=== PATIENT | female | born 1955 | race African-American/Black ===

== ENCOUNTER 2016-08-18 00:07 | Inpatient (IN) ==
[2016-08-18] MEDS ORDERED: TORADOL IV ONE (00:33)
[2016-08-18] MEDS ORDERED: ZOFRAN IV ONE (00:34)
[2016-08-18] MEDS ORDERED: DILAUDID IV ONE ×2 (00:34→01:28)
[2016-08-18] MEDS ORDERED: NS 1,000 ML IV ONE ×2 (01:27→02:26)
[2016-08-18 01:31] LABS: MANUAL DIFF NEEDED? NO
[2016-08-18 01:54] LABS: AGAP 12; ALBUMIN 4.1 g/dL (3.5-5.0); ALKALINE PHOSPHATASE 61 U/L (32-104); BASO% 0.1 % (0.0-0.8); BUN 9 mg/dL (8-22); CALCIUM 9.2 mg/dL (8.8-10.2); CHLORIDE 97 mmol/L (98-107); COSMO 274; GOT 25 U/L (10-30); GPT 18 U/L (10-36); IMM GRAN# 0.03 X1000 (0.0-0.04); IMM GRAN% 0.3 % (0.0-0.5); LIPASE 75 U/L (13-60); POTASSIUM 2.9 mmol/L (3.5-5.1); SODIUM 136 mmol/L (136-145); TCO2 27 mmol/L (25-35); TOTAL PROTEIN 8.3 g/dL (6.3-8.3)
[2016-08-18 01:57] LABS: HEMATOCRIT 37.5 % (37.0-47.0); HEMOGLOBIN 11.9 g/dL (12.0-16.0); LYMPH# 1.03 X1000 (1.2-3.4); LYMPH% 11.2 % (20.5-51.1); MCH 26.5 PG (27-31); MCHC 31.7 g/dL (33-37); MCV 83.5 FL (81-99); MONO# 0.48 X1000 (0.11-0.59); MONO% 5.2 % (1.7-9.3); MPV 11.9 FL (7.4-10.4); NEUT% 83.2 % (42.2-75.2); PLT 228 X1000 (130-400); RBC 4.49 XMIL (4.2-5.4)
--- NOTE | 2016-08-18 01:58 | PROVIDER DOCUMENTATION ---
This chart was entered by Xin Hills Scribe, acting as scribe for Jasmeet Ulloa MD. HPI-Abdominal Pain/GI Problem - General Chief Complaint: Abdominal Pain Stated Complaint: ABD PAIN Time Seen by Provider: 08/18/16 00:28 Source: patient Allergies/Adverse Reactions: Patient Allergies Allergy/AdvReac Type Severity Reaction Status Date / Time celecoxib [From Celebrex] Allergy Unknown Verified 08/18/16 00:18 egg Allergy Unknown Verified 08/18/16 00:18 Penicillins Allergy Unknown Verified 08/18/16 00:18 Home Medications: Home Medication List Medication Instructions Recorded Confirmed Last Taken Type Acetaminophen with Codeine 1 tab PO TID 08/18/16 08/18/16 08/18/16 History [Acetaminophen-Cod #3 Tablet] Amitriptyline HCl [Amitriptyline 1 tab PO DAILY 08/18/16 08/18/16 08/18/16 History HCl] Atorvastatin Calcium 1 tab PO QHS 08/18/16 08/18/16 08/17/16 History Cyclobenzaprine [Flexeril] 1 tab PO TID 08/18/16 08/18/16 08/18/16 History Diclofenac Sodium [Diclofenac 1 dose TOP PRN 08/18/16 08/18/16 History Sodium] Montelukast [Singulair] 1 tab PO DAILY 08/18/16 08/18/16 08/18/16 History Potassium Chloride 1 tab PO DAILY 08/18/16 08/18/16 08/18/16 History Triamterene [Dyrenium] 1 tab PO TID 08/18/16 08/18/16 08/18/16 History - History of Present Illness-ABD Nature of Presenting Problems: 61 Y/O F presents to ED with ABD pain. Pt states RLQ pain that began after eating dinner around 1900. Pt states N/V. Vx1. Abdominal Pain Onset Location: reports: RLQ Pain Radiation: reports: no radiation Quality of Pain: reports: sharp Severity in ED: reports: moderate, severe Onset/Duration: reports: this evening Timing: reports: still present Activities at Onset: reports: none Associated Symptoms: reports: nausea, vomiting. denies: chest pain, cough, diarrhea, genitourinary problems # of Vomiting Episodes: 1 Emesis Description: reports: none Review of Systems - Adult - REVIEW OF SYSTEMS - ADULT Constitutional: denies: chills, fever Eyes: reports: no symptoms reported Ears, Nose, Mouth & Throat: reports: no symptoms reported Cardiovascular: reports: no symptoms reported Respiratory: reports: no symptoms reported Gastrointestinal: reports: abdominal pain, nausea, vomiting. denies: diarrhea Genitourinary: reports: no symptoms reported Musculoskeletal: reports: no symptoms reported Integumentary: reports: no symptoms reported Neurological: reports: no symptoms reported Psychiatric: reports: no symptoms reported Endocrine: reports: no symptoms reported Hematologic/Lymphatic: reports: no symptoms reported Allergic/Immunologic: reports: no symptoms reported All Other Systems: Reviewed and Negative Past History - Adult - PAST MEDICAL HISTORY-ADULT Review of Records: reports: Old Records Reviewed, Nursing Assessment Review, Medications Reviewed, Social history reviewed & non-contributory. Physical Exam-General - CONSTITUTIONAL General Appearance: alert, mild distress - EYES Eyes: PERRL/EOMI, pink conjunctivae - HEAD, EARS, NOSE, MOUTH & THROAT HENMT: normocephalic/atraumatic, moist mucous membranes, normal ENT inspection, TMs normal, pharynx normal - NECK Neck: full range of motion, supple, normal inspection - RESPIRATORY Respiratory: lungs clear, normal breath sounds - CARDIOVASCULAR Cardiovascular: regular rate, rhythm - GASTROINTESTINAL (ABDOMEN) Abdominal Exam: soft, tenderness (RLQ) - LYMPHATIC Lymphatic: no adenopathy - MUSCULOSKELETAL Back Exam: normal inspection, no CVA tenderness Extremity: normal range of motion - SKIN Integumentary: normal color - PSYCHIATRIC Psych/Mental Status: normal mood/affect, normal thought content, normal thought process, oriented x 3 Progress - PLAN OF CARE/RESULTS Progress/Plan/Lab Results: Vital Signs - 8 hr 08/18/16 00:20 Temperature 97.7 F Pulse Rate 84 Respiratory Rate 18 Blood Pressure 148/87 O2 Sat by Pulse Oximetry 100 Result Diagrams: 08/18/16 00:40 08/18/16 00:40 - REASSESSMENT Reassessment #1 Time Reassessed: 01:28 (pt is modestly improved after first round of meds) Status: improving - CT/MRI 1 CT Study: Renal Stone Impression: Abnormal (1. Fluid-filled distened loops of small bowel throughout the abdomen and pelvis with no disrete transition point. This could be ileus or developing obstruction. 2. Calcified cholelithiasis with no stigmata of cholecystitis 3. Moderate stool 4. Significant left hemidiaphragm elevation) CT Results: See Notes Departure - Departure Date of Disposition Decision: 08/18/16 Time of Disposition Decision: 01:57 DIAGNOSIS: SBO (small bowel obstruction) Disposition: ADMITTED INPATIENT 09 Certified Medical Emergency: Emergent Condition: Good Referrals and Follow-Ups: Josiah Moody MD [Primary Care Provider] - - Critical Care Note This patient required my direct & personal management of CC.: No This chart was documented by the indicated scribe, (Xin Hills Scribe) and accurately reflects the services I performed and decisions made by me, Jasmeet Ulloa MD, as attested by the provider's signature.
[2016-08-18 02:24] LABS: BILIRUBIN URINE NEGATIVE (NEGATIVE); BLOOD URINE NEGATIVE (NEGATIVE); CLARITY CLEAR (CLEAR); COLOR YELLOW; GLUCOSE URINE NEGATIVE (NEGATIVE); LEUKOCYTES URINE 1+ (NEGATIVE); NITRITE URINE NEGATIVE (NEGATIVE); PROTEIN URINE NEGATIVE (NEGATIVE); URINE SOURCE CLEAN CATCH; UROBILINOGEN URINE NORMAL
[2016-08-18 02:25] LABS: URINE CULTURE PL NEEDED? YES; URINE EPITHELIAL CELLS <10 /HPF (<10); URINE RBC <10 /HPF (<10); URINE WBC <10 /HPF (<10)
[2016-08-18] MEDS: DILAUDID IV PRN ×6 (03:39→21:03)
[2016-08-18] MEDS: ZOFRAN IV PRN (05:10)
--- NOTE | 2016-08-18 09:00 | Diag Imaging Result Doc PS360 ---
EXAM: RENAL STONE SEARCH HISTORY: right sided pain TECHNIQUE: Abdomen and pelvis without contrast stone search protocol. Dose reduction technique. COMPARISON: None. FINDINGS: Preliminary interpretation was given by [facility]. There is elevated left diaphragm and large amount of retained fluid within the stomach. There is moderate constipation. There are prominent fluid-filled small bowel loops throughout the abdomen. No discrete transition point is identified to suggest obstruction. There is a atherosclerotic calcification. There is fusion of the lower lumbar spine with metallic hardware in place. There are multiple calcified gallstones within the gallbladder. No pericholecystic inflammation is appreciated. Evaluation of the solid visceral organs is limited by lack of IV contrast. There may be mild right hydronephrosis best appreciated in the coronal plane.. No ureteral calculus is appreciated. This could represent a recently passed stone.. There is punctate left nephrolithiasis. The appendix and uterus are surgically absent . No free air or free fluid is appreciated. The urinary bladder is moderately distended. IMPRESSION: 1.Constipation. 2.Cholelithiasis. Consider correlation with ultrasound. 3.Fluid-filled bowel loops which may represent ileus. Correlate clinically. 4.Elevated left hemidiaphragm with distended fluid-filled stomach of uncertain significance. 5.There is minimal right hydronephrosis noted in the coronal plane. No obstructing calculus is appreciated. 6.Extensive postsurgical changes lumbosacral spine. Electronically signed by Wendy Martinez 08/18/2016 8:58 AM
--- NOTE | 2016-08-18 10:52 | Diag Imaging Result Doc PS360 ---
US GB < RUQ (LIMITED) - 08/18/2016 INDICATION: cholelithiasis per CT TECHNIQUE: Kramer scale, color Doppler, and duplex evaluation of the abdomen was performed. COMPARISON: Stone search CT 08/18/2016 FINDINGS: The liver appears normal in size and echotexture. No focal masses are appreciated. No intrahepatic biliary ductal dilatation is appreciated. The IVC and aorta appear normal. The pancreas is obscured by bowel gas artifact. The gallbladder contains multiple mobile gallstones. The largest measures 1.4 cm. There is a normal caliber gallbladder wall. No sonographic Augustin's was elicited. The common bile duct measures 9 mm. The portal vein is patent with hepatopetal flow. The right kidney appears normal. There is no hydronephrosis. IMPRESSION: Cholelithiasis. Prominent common bile duct measuring 9 mm. Recommend correlation with liver function testing. Electronically signed by Wendy Martinez 08/18/2016 10:49 AM
--- NOTE | 2016-08-18 11:02 | Diag Imaging Result Doc PS360 ---
EXAM: ABDOMEN FLAT/UPRIGHT HISTORY: ileus TECHNIQUE: Supine and erect views of the abdomen. COMPARISON: None. FINDINGS: There is gas throughout mildly prominent large and small bowel with an air-fluid level within the cecum. There are postsurgical changes lumbar spine. No organomegaly or mass effect is appreciated. No free air is identified. There is suboptimal visualization left lung base and possibly a left lower lobe infiltrate. Elevated hemidiaphragm was noted on recent CT scan. Follow-up chest radiograph could be considered. IMPRESSION: Findings suggesting ileus. Possible retrocardiac infiltrate. Elevated hemidiaphragm noted on recent CT scan. Consider follow-up chest radiograph. Electronically signed by Wendy Martinez 08/18/2016 11:00 AM
--- NOTE | 2016-08-18 12:06 | HISTORY AND PHYSICAL ---
PRIMARY CARE PHYSICIAN: Dr. Josiah Allen. CHIEF COMPLAINT: Right lower quadrant abdominal pain that began after dinner with nausea and vomiting x3. HISTORY OF PRESENTING ILLNESS: This is a 61-year-old female who presents to [facility] ER with complaints of right lower quadrant abdominal pain that she states began after dinner. Described it as a sharp pain with nausea, and vomited a total of 3 times. On workup in the ER, they did a renal CT that showed constipation, cholelithiasis, and fluid-filled bowel loops which may represent an ileus. Potassium was noted to be 2.9. Urine was negative. We did a right upper quadrant abdominal ultrasound this morning that showed the impression of cholelithiasis with a prominent common bile duct measuring 9 mm. We repeated an abdomen x-ray this morning that showed findings suggesting the ileus, so she was admitted for further evaluation and treatment. PAST MEDICAL HISTORY: Hypothyroidism and constipation. PAST SURGICAL HISTORY: Back surgery x3, a right rotator cuff surgery, hysterectomy, and appendectomy. FAMILY HISTORY: Noncontributory. SOCIAL HISTORY: She currently lives alone. Denied any tobacco, alcohol, or illicit drug use. ALLERGIES: Celecoxib, eggs, and penicillin. HOME MEDICATIONS: Will all be held at this time, as she is n.p.o. She takes Tylenol with codeine No. 3 one p.o. t.i.d. p.r.n.; Fosamax 10 mg as directed; amitriptyline 25 mg 2 tablets at bedtime; atorvastatin 20 mg 1 p.o. at bedtime; black cohosh 40 mg p.o. b.i.d.; Zyrtec 10 mg p.o. daily; Flexeril 10 mg p.o. t.i.d.; Singulair 10 mg 1 p.o. daily; multivitamin 1 p.o. daily; potassium chloride 20 mEq 1 p.o. daily; DHEA 25 mg p.o. daily; triamterene 100 mg p.o. t.i.d. LABORATORY DATA: Showed a white blood cell count of 9.18, hemoglobin of 11.9, hematocrit 37.5, and platelets 228,000. Sodium 136, potassium 2.9, chloride 97, CO2 of 27, BUN of 9, creatinine 0.7, glucose 163. AST of 25, ALT 18, and lipase of 75. Urinalysis was negative. CT of renal showed constipation, cholelithiasis, consider correlation with ultrasound, and fluid-filled bowel loops, which may represent an ileus. Correlate clinically. Abdomen x-ray this a.m. showed findings suggestive of ileus and a possible retrocardiac infiltrate. Abdomen ultrasound showed cholelithiasis with a prominent common bile duct measuring 9 mm. REVIEW OF SYSTEMS: She denied any fever, chills, blurred vision, dizziness, chest pain, coughing, shortness of breath. She is positive for abdominal pain, more prominent in the right lower quadrant, nausea, and vomiting. Denied any diarrhea. She is positive for constipation. Denied any burning or hurting with urination. PHYSICAL EXAMINATION: VITAL SIGNS: On arrival, she had a temperature of 97.7 degrees, pulse 84, respirations 18, blood pressure 148/87, saturating 100% on room air. GENERAL: This is a 61-year-old female who is lying in the bed. Answers questions appropriately. HEENT: Normocephalic and atraumatic. Pupils are equal, round, and reactive to light. Extraocular movements are intact. Oropharynx and nares are clear. NECK: Supple. LUNGS: Clear to auscultation bilaterally, with equal lung expansion and chest wall movement. HEART: Regular rate and rhythm. No murmurs, rubs, or gallops. ABDOMEN: Soft. There is tenderness to palpation throughout the entire abdomen. Bowel sounds are hypoactive x4 quadrants. EXTREMITIES: No clubbing, cyanosis, or edema. NEUROLOGICAL: The cranial nerves 2-12 are grossly intact. ASSESSMENT: 1. Right lower quadrant abdominal pain. 2. Nausea and vomiting. 3. Ileus. 4. Cholelithiasis. 5. Hypokalemia. PLAN: She was admitted to the medical unit at [facility] and placed on telemetry. We are holding her n.p.o. at this time, obtaining a urine culture. She is on Dilaudid 1 mg IV q.2 hours p.r.n., normal saline at 100 mL an hour, and Zofran 4 mg IV q.4 hours p.r.n. We will give her a potassium supplement of 20 mEq now and repeat in 4 hours, and then recheck CBC and BMP in the a.m. Dictated by SUJATHA Wang for Rinku Santiago MD cc: SUJATHA Wang MD [facility] [place]
[2016-08-18] MEDS: POTASSIUM CHLORIDE 20 MEQ/SWI 20 MEQ/100 ML IVPB IV SCH ×2 (12:52→17:16)
[2016-08-18] MEDS: NS 1,000 ML IV SCH (13:21)
[2016-08-19] MEDS: ZOFRAN IV PRN ×4 (00:30→18:59)
[2016-08-19] MEDS: DILAUDID IV PRN ×7 (00:30→17:25)
[2016-08-19] MEDS: NS 1,000 ML IV SCH ×2 (00:34→09:50)
[2016-08-19 06:34] LABS: MANUAL DIFF NEEDED? NO
[2016-08-19 06:41] LABS: BASO% 0.1 % (0.0-0.8); EOS# 0.07 X1000 (0.0-0.7); EOS% 0.8 % (0.0-10.0); HEMATOCRIT 36.9 % (37.0-47.0); HEMOGLOBIN 11.4 g/dL (12.0-16.0); IMM GRAN# 0.02 X1000 (0.0-0.04); IMM GRAN% 0.2 % (0.0-0.5); LYMPH# 1.39 X1000 (1.2-3.4); LYMPH% 16.2 % (20.5-51.1); MCH 26.5 PG (27-31); MCHC 30.9 g/dL (33-37); MCV 85.6 FL (81-99); MONO# 0.73 X1000 (0.11-0.59); MONO% 8.5 % (1.7-9.3); MPV 11.5 FL (7.4-10.4); NEUT% 74.2 % (42.2-75.2); PLT 204 X1000 (130-400); RBC 4.31 XMIL (4.2-5.4)
[2016-08-19 07:08] LABS: AGAP 12; BUN 6 mg/dL (8-22); CALCIUM 8.4 mg/dL (8.8-10.2); CHLORIDE 102 mmol/L (98-107); COSMO 271; POTASSIUM 3.7 mmol/L (3.5-5.1); SODIUM 137 mmol/L (136-145); TCO2 23 mmol/L (25-35)
[2016-08-19 10:44] LABS: AGAP 13; ALBUMIN 3.6 g/dL (3.5-5.0); ALKALINE PHOSPHATASE 59 U/L (32-104); AMYLASE 141 U/L (20-200); BUN 6 mg/dL (8-22); CALCIUM 8.4 mg/dL (8.8-10.2); CHLORIDE 101 mmol/L (98-107); COSMO 270; GOT 19 U/L (10-30); GPT 13 U/L (10-36); LIPASE 74 U/L (13-60); POTASSIUM 3.6 mmol/L (3.5-5.1); SODIUM 137 mmol/L (136-145); TCO2 23 mmol/L (25-35); TOTAL PROTEIN 7.1 g/dL (6.3-8.3)
--- NOTE | 2016-08-19 11:22 | PROGRESS NOTE ---
DATE: 08/19/2016 SUBJECTIVE: Patient still complains of abdominal pain and nausea. She states that she is hurting a lot. She states that she feels constipated. PHYSICAL: Temperature 98, pulse 87, respiratory 18, BP 155/80. Saturation 93%-95% on room air. General: Patient is awake, alert. She is currently in no respiratory distress, although she does appear to be ill. HEENT: Normocephalic, atraumatic. Neck supple. CV: Regular rate. Chest clear. Abdomen soft. Positive but decreased bowel sounds times all 4 quadrants. Diffusely tender. Extremities: Moves all extremities well. LABORATORY DATA: CBC normal. Lipase yesterday on exam was elevated. We will ask lab to rerun that today. We will check a KUB, and we will advance diet. IMPRESSION: 1. Cholelithiasis, stable. 2. Hypokalemia, replaced. Her potassium currently is 3.7. cc: Rinku Santiago MD
--- NOTE | 2016-08-19 13:19 | Diag Imaging Result Doc PS360 ---
KUB ABDOMEN - 08/19/2016 INDICATION: pain TECHNIQUE: COMPARISON: 08/18/2016 FINDINGS: There is still a fair amount of stool in the proximal colon. The bowels are generally hyperinflated stable from prior. The reason is unclear. No obvious free air. There are some stones in the right upper quadrant compatible with gallstones visible on the CT from yesterday. IMPRESSION: No change from prior. Electronically signed by Paco Mills 08/19/2016 1:17 PM
[2016-08-19] MEDS ORDERED: CITRATE OF MAGNESIA PO ONE (15:00)
[2016-08-19 16:05] VITALS: BP 158/90
[2016-08-19] MEDS ORDERED: FLEET ENEMA PR ONE (17:32)
--- NOTE | 2016-08-21 06:42 | DISCHARGE SUMMARY ---
ADMISSION DATE: 08/18/2016 DISCHARGE DATE: 08/19/2016 DISCHARGE DIAGNOSES: 1. Patient left against medical advice. 2. Small bowel ileus, improving. 3. Cholelithiasis, stable. 4. Hypokalemia. 5. Right lower quadrant pain. BRIEF HOSPITAL COURSE: The patient was admitted, kept NPO and her ileus resolved. However, she decided that she was not going to stay in the hospital after we stopped her pain medication and therefore she left against medical advice. Her plan was to begin enemas, to attempt to help her constipation; however, as noted she left before this could be achieved. cc: Rinku Santiago MD
== END 2016-08-19 20:22 | disposition left against medical advice (07) ==
LOC: P.ED 00:07 → P.MEDSURG 02:51 → SUATTDRO 02:51
PROVIDERS: ATTEND Family Medicine